=== PATIENT | male | born 1960 | race Caucasian/White ===

== ENCOUNTER 2020-05-02 08:02 | Day surgery (SDC) | payer MEDICARE, OTHER ==
[2020-04-30 09:46] VITALS: BMI 33.9
[~2020-05-02 08:02] MED LIST: SODIUM CHLORIDE 0.9% 1,000 ML IV SCH
[2020-05-02 08:32] VITALS: BP 147/94; PULSE 65; RESP 16; TEMP 97.8
--- NOTE | 2020-05-02 14:50 | PN ---
PROGRESS NOTE Mr. Sams is a 60-year-old male who was scheduled to undergo cardioversion today. He is back in sinus mechanism. For the last 2 days, he is feeling better. His breathing is stable. He denies any chest pain or dizziness. He feels that his breathing is improving and his heart rate is under better control. The plan is to be discharged home today and he will follow as an outpatient and if he has recurrent atrial fibrillation, then the decision will be made for possible ablation. MMODL / IJN: [id number] /
== END 2020-05-02 09:53 | disposition home or self-care (01) ==
LOC: CATHCVL 08:02
PROVIDERS: ATTEND Internal Medicine Interventional Cardiology
DX: I48.3 Typical atrial flutter (principal); I25.10 Atherosclerotic heart disease of native coronary artery without angina pectoris; I48.91 Unspecified atrial fibrillation; Z79.82 Long term (current) use of aspirin; Z79.899 Other long term (current) drug therapy; E78.2 Mixed hyperlipidemia; E11.51 Type 2 diabetes mellitus with diabetic peripheral angiopathy without gangrene; I10 Essential (primary) hypertension; Z82.49 Family history of ischemic heart disease and other diseases of the circulatory system; Z95.5 Presence of coronary angioplasty implant and graft; E78.00 Pure hypercholesterolemia, unspecified; F17.210 Nicotine dependence, cigarettes, uncomplicated; Z79.01 Long term (current) use of anticoagulants; Z79.84 Long term (current) use of oral hypoglycemic drugs; Z53.8 Procedure and treatment not carried out for other reasons

== ENCOUNTER → 2020-06-11 | Outpatient (CLI) | payer MEDICARE, OTHER | END | disposition home or self-care (01) | LOC: LABWHC1 12:52 | PROVIDERS: ATTEND Internal Medicine | DX: Z20.828 Contact with and (suspected) exposure to other viral communicable diseases (principal) | CPT/HCPCS: U0003; C9803 ==

== ENCOUNTER → 2021-12-16 | Outpatient (CLI) | payer MEDICARE ==
--- NOTE | 2021-12-16 12:52 | CTL ---
EXAMINATION TYPE: CT Low Dose Lung DATE OF EXAM ORDERED: 12/16/2021 HISTORY: . Lung cancer screening CT DLP: 152.[address] CTDI: 4.20 mGy Automated exposure control for dose reduction was used. SCREENING VISIT: COMPARISON: None TECHNIQUE: Low dose computed tomography scan was performed through the chest at 1 mm thick sections a nd reconstructed images in multiple planes at 1 mm and [address] DIAGNOSTIC QUALITY: Satisfactory FINDINGS: There are numerous bilateral pulmonary nodules the largest measuring 6 mm. Diffuse emphysematous mcfarland ges are noted. No pleural effusion or pneumothorax. No pleural calcified herniations. No parenchymal calcifications. The heart is enlarged and coronary artery calcification. Atherosclerotic change of the aorta. No over t failure. No consolidative pneumonia. Hypertrophic and degenerative changes of the spine. Prominence of the pancreatic tail. IMPRESSION: 1. COPD with numerous bilateral pulmonary nodules the largest measuring 6 mm. Findings are too small to characterize recommend follow-up [address] scan. 2. Coronary artery calcification. 3. Question mild prominence of the pancreatic tail recommend CT of the abdomen. CT LUNG RAD AND CT CHEST RECOMMENDATION: Lung-Rad 3 Probably Benign: 6 month follow-up LDCT. S Modifier (other clinically significant findings): S
== END | disposition home or self-care (01) ==
LOC: RADCTMAIN 09:24
PROVIDERS: ATTEND Internal Medicine
DX: Z12.2 Encounter for screening for malignant neoplasm of respiratory organs (principal); J44.9 Chronic obstructive pulmonary disease, unspecified; I25.10 Atherosclerotic heart disease of native coronary artery without angina pectoris; R91.8 Other nonspecific abnormal finding of lung field; Z87.891 Personal history of nicotine dependence
CPT/HCPCS: 71271

== ENCOUNTER → 2022-02-17 | Outpatient (CLI) | payer MEDICARE ==
[2022-02-17 09:42] LABS: African American GFR (CKD) >90 (>60 ml/min/1.73 sqM); Blood Urea Nitrogen 21 mg/dL (9-20); Non-African American GFR(CKD) >90 (>60 ml/min/1.73 sqM)
--- NOTE | 2022-02-17 11:31 | CT ---
EXAMINATION TYPE: CT pancreas biphase CT DLP: 1570.7 mGycm, Automated exposure control for dose reduction was used. DATE OF EXAM: 02/17/2022 10:42 AM COMPARISON: CT chest 12/16/2021. CLINICAL INDICATION:Male, 61 years old with history of C50.911 MALIGNANT NEOPLASM; disease of pancrea s, malignant neoplasm TECHNIQUE: Axial CT of the abdomen and pelvis . Sagittal and coronal reformats were created on a [employer] workstation. Contrast used:200 mL of Isovue 370 with IV Contrast, Oral contrast used: None FINDINGS: LOWER CHEST: Unremarkable ABDOMEN LIVER: Right hepatic lobe segment IVb peripheral early phase enhancement which equilibrates on delaye d imaging and likely representing shunting phenomenon. This area measures approximately 15 mm. GALLBLADDER AND BILE DUCTS: Unremarkable. PANCREAS: Pancreatic parenchyma enhances uniformly. There is no evidence for mass. The pancreatic keron l area of question is felt to be normal pancreatic tissue. SPLEEN: Unremarkable. ADRENAL GLANDS: Unremarkable. KIDNEYS AND URETERS: No evidence of hydronephrosis or renal calculus. The ureters are unremarkable. ABDOMEN & PELVIS STOMACH AND BOWEL: No evidence of bowel obstruction. Scattered colonic diverticula present. PERITONEUM: No evidence of pneumoperitoneum or free fluid. VASCULATURE: No evidence of aortic aneurysm. Atherosclerosis of the arterial vasculature. MUSCULOSKELETAL: No acute osseous abnormalities. Mild multilevel disc degeneration changes seen throu ghout the spine. LYMPH NODES: No gross evidence for lymphadenopathy. SOFT TISSUE/ABDOMINAL WALL: Unremarkable IMPRESSION: 1. No evidence for pancreatic mass. 2. Colonic diverticulosis.
== END | disposition home or self-care (01) ==
LOC: RADCTMAIN 08:16
PROVIDERS: ATTEND Internal Medicine
DX: C25.9 Malignant neoplasm of pancreas, unspecified (principal); K57.30 Diverticulosis of large intestine without perforation or abscess without bleeding
CPT/HCPCS: 82565; 84520; 36415; 74160; Q9967